=== PATIENT | male | born 1960 | race Caucasian/White ===

== ENCOUNTER 2017-01-11 16:44 | Emergency (ER) | payer OTHER ==
[~2017-01-11] VITALS: Ht 182.9 cm; Wt 95.3 kg
[~2017-01-11 16:44] MED LIST: APAP500 PO; ATIVAN0.5 MG PO; AUGMENTIN 875-1 EACH PO; AUGMENTIN 875875 MG PO; CARVEDILOL3.125 MG PO; COREG3.125 MG PO; DUONEB 2.5-0.5 M3 ML INH; LEVAQUIN 500 M500 M2 PO; NEBULIZER MISCELL; NOHOMEMEDICATIONS; OMEPRAZOLE20 M1 PO; PREDNISONE 10 M10 MG PO; PRILOSEC 20 MG20 MG PO; PROAIR HFA8.5 GM IH; ROBAXIN500 MG PO; SODIUM CHLORIDE1 G2 PO; SODIUM PO; TRAMADOL 50 MG50 MG PO; TRINATE TABLET1 TAB PO; TYLENOL325 MG PO; VITAMIN B-1100 M1 PO; VITAMIN B-1100 M2 PO
[2017-01-11 17:02] LABS: POC ANION GAP 19 mmol/L (7-16); POC BUN < 4 mg/dL (7-18); POC CA IONIZED 4.6 mg/dL (4.5-5.3); POC CHLORIDE 82 mmol/L (98-107); POC CREATININE 0.9 mg/dL (0.6-1.3); POC GLUCOSE 123 mg/dL (70-99); POC HEMOGLOBIN 12.6 g/dL (14.0-18.0); POC POTASSIUM 4.5 mmol/L (3.5-5.1); POC SODIUM 118 mmol/L (136-145); POC TCO2 23 mmol/L (21-32)
== END 2017-01-11 16:57 ==
LOC: ER 16:44
PROVIDERS: Emergency Medicine
DX: I46.9 Cardiac arrest, cause unspecified (principal); J44.9 Chronic obstructive pulmonary disease, unspecified; F17.210 Nicotine dependence, cigarettes, uncomplicated; F10.99 Alcohol use, unspecified with unspecified alcohol-induced disorder; Z98.890 Other specified postprocedural states; Z88.6 Allergy status to analgesic agent